=== PATIENT | female | born 1990 | race Caucasian/White ===

== ENCOUNTER → 2021-07-20 | Outpatient (CLI) | payer OTHER ==
[~2021-07-20] MED LIST: PRILOSEC OTC20 MG PO; TRI-SPRINTEC T1 EACH PO
[2021-07-20 10:10] LABS: HEMOGLOBIN 12.8 gm/dl (12.3-15.3); RED BLOOD COUNT 4.41 M/UL (4.00-5.10); WHITE BLOOD COUNT 5.1 K/UL (4.5-11.0)
[2021-07-20 10:53] LABS: BUN/CREATININE RATIO 13 (0-10)
[2021-07-21 09:13] LABS: VITAMIN D, 25-HYDROXY 32.9 ng/mL (30.0-100.0)
[2021-07-21 13:13] LABS: PREALBUMIN 24 mg/dL (14-35)
[2021-07-28 11:13] LABS: VITAMIN E(ALPHA TOCOPHEROL) 11.1 mg/L (5.9-19.4); VITAMIN E(GAMMA TOCOPHEROL) 1.3 mg/L (0.7-4.9)
== END ==
LOC: RAD 09:24
PROVIDERS: Physician Assistant
DX: I10 Essential (primary) hypertension (principal); E55.9 Vitamin D deficiency, unspecified; K21.9 Gastro-esophageal reflux disease without esophagitis; Z98.84 Bariatric surgery status
CPT/HCPCS: 36415; 74246; 80053; 80061; 82728; 82746; 83036; 83540; 83735; 83921; 83970; 84100; 84134; 84425; 84443; 84446; 84590; 85027

== ENCOUNTER 2021-10-29 23:32 | Emergency (ER) | payer OTHER | END 2021-10-30 01:05 | disposition home or self-care (01) | LOC: ER1 23:32 | DX: T14.8XXA Other injury of unspecified body region, initial encounter (principal); M79.642 Pain in left hand; Y04.2XXA Assault by strike against or bumped into by another person, initial encounter | CPT/HCPCS: 71111; 72100; 73130; 99284 ==